=== PATIENT | female | born 1970 | race Caucasian/White ===

== ENCOUNTER 2022-06-27 02:33 | Emergency (ER) | payer OTHER ==
[2022-06-27] MEDS ORDERED: LORazepam 0.5 MG TAB PO ONE (02:45)
[2022-06-27] MEDS ORDERED: ATI.5 PO (03:06)
[2022-06-27 03:15] VITALS: BP 135/82
== END 2022-06-27 03:15 | disposition home or self-care (01) ==
LOC: MED 02:33
DX: F43.0 Acute stress reaction (principal); Z79.899 Other long term (current) drug therapy
CPT/HCPCS: 99283